=== PATIENT | male | born 1995 | race Caucasian/White ===

== ENCOUNTER 2020-10-13 18:32 | Inpatient (IN) | payer MEDICAID ==
[~2020-10-13] VITALS: Ht 167.6 cm; Wt 112.5 kg
[2020-10-13 19:53] LABS: BASOPHILS % (AUTO) 0.3 % (0.0-2.0); EOSINOPHILS % (AUTO) 0.4 % (1.0-6.0); HEMATOCRIT 40.5 % (41-53); HEMOGLOBIN 13.2 g/dL (13.5-17.5); LYMPHOCYTES # (AUTO) 2.9 K/uL (1.0-4.8); MEAN CORPUSCULAR HEMOGLOBIN 27.7 pg (26.0-34.0); MEAN CORPUSCULAR HGB CONC 32.7 G/dL (31.0-37.0); MEAN CORPUSCULAR VOLUME 85 fL (80-100); MONOCYTES # (AUTO) 1.1 K/uL (0.1-1.0); NEUTROPHILS # (AUTO) 9.6 K/uL (1.8-7.7); NEUTROPHILS % (AUTO) 70.3 % (40.0-70.0); PLATELET COUNT (AUTO) 329 K/uL (150-450); RED BLOOD CELL COUNT(AUTO) 4.78 MIL/uL (4.50-5.90); RED CELL DISTRIBUTION WIDTH 15.6 % (11.5-14.5)
[2020-10-13 19:58] LABS: ANION GAP 9 mmol/L (8-16); CALCIUM, TOTAL 8.4 mg/dL (8.8-10.5); CARBON DIOXIDE 26 mmol/L (22-29); CHLORIDE 101 mmol/L (98-107); CREATININE 1.05 mg/dL (0.60-1.30); GLOMERULAR FILTR. RATE CALC > 60 mL/min (>60); GLUCOSE,RANDOM 120 mg/dL (70-110); POTASSIUM 3.5 mmol/L (3.5-5.1); SODIUM SERUM 136 mmol/L (136-145); UREA NITROGEN, BLOOD 16 mg/dL (7-18)
[2020-10-13 20:01] LABS: APPEARANCE,URINE CLEAR (CLEAR); BILIRUBIN,URINE NEGATIVE (NEGATIVE); GLUCOSE, URINE (UA) NEGATIVE (NEGATIVE); KETONES,URINE NEGATIVE (NEGATIVE); LEUKOCYTE ESTERASE ,URINE NEGATIVE (NEGATIVE); NITRATE,URINE NEGATIVE (NEGATIVE); OCCULT BLOOD,URINE NEGATIVE (NEGATIVE); PH,URINE 6.5 (5.0-8.0); PROTEIN,URINE NEGATIVE (NEGATIVE); UROBILINOGEN,URINE 0.2 mg/dL (<=1.0)
[2020-10-13 20:05] LABS: ALANINE AMINOTRANSFERASE 61 U/L (12-78); ALBUMIN 3.5 g/dL (3.4-5.0); ALKALINE PHOSPHATASE 101 U/L (46-116); ASPARTATE AMINOTRANSFERASE 28 U/L (15-37); BILIRUBIN,TOTAL 0.6 mg/dL (0.1-1.0); TOTAL PROTEIN, SERUM 7.4 g/dL (6.4-8.2)
[2020-10-13 20:07] LABS: AMPHET/METH SCREEN,URINE NEGATIVE (NEGATIVE); BARBITURATE SCREEN, URINE NEGATIVE (NEGATIVE); BENZODIAZEPINES SCREEN,URINE NEGATIVE (NEGATIVE); CANNABINOID SCREEN,URINE NEGATIVE (NEGATIVE); COCAINE SCREEN,URINE NEGATIVE (NEGATIVE); METHADONE SCREEN, URINE NEGATIVE (NEGATIVE); OPIATE SCREEN,URINE NEGATIVE (NEGATIVE)
[2020-10-13 20:10] LABS: ACETAMINOPHEN < 2 mcg/mL (10-30); SALICYLATE < 2.8 mg/dL (2.8-20.0)
[2020-10-13 20:15] LABS: PHENCYCLIDINE SCREEN,URINE NEGATIVE (NEGATIVE)
[2020-10-13] MEDS ORDERED: QUEtiapine FUMARATE 100 MG TABLET PO PRN (20:30)
[2020-10-13] MEDS ORDERED: ZOLPIDEM TARTRATE 10 MG TABLET PO PRN (20:30)
[2020-10-13 20:39] LABS: COVID AG,FIA SOURCE NASOPHARYNGEAL
[2020-10-13 20:51] LABS: BACTERIA,URINE None Seen /HPF (None Seen); RBC,URINE None Seen /HPF (0-2); WBC,URINE None Seen /HPF (0-5)
[2020-10-13] MEDS ORDERED: OLAN2.5T29 PO (22:47)
[2020-10-13] MEDS ORDERED: BENZ0.5T44 PO (22:47)
[2020-10-13] MEDS ORDERED: DIPH25CA85 PO (22:47)
[2020-10-14 02:02] VITALS: BP 138/89
[2020-10-14 08:09] VITALS: BP 137/77
[2020-10-14 08:09] LABS: CHOL/HDL RATIO 2.7 (4.2-7.3)
[2020-10-14] MEDS ORDERED: ALBUTEROL SULFATE HFA 90 MCG/PUFF 8 GM INHALER IH PRN (09:00)
[2020-10-14] MEDS ORDERED: ONDANSETRON HCL 4 MG TABLET PO PRN (09:00)
[2020-10-14] MEDS ORDERED: PETROLATUM,WHITE 28 GM JELLY TP PRN (09:00)
[2020-10-14] MEDS ORDERED: CloNIDine HCL 0.1 MG TABLET PO PRN (09:00)
[2020-10-14] MEDS ORDERED: DOCUSATE SODIUM 100 MG CAPSULE PO PRN (09:00)
[2020-10-14] MEDS ORDERED: IBUPROFEN 400 MG TABLET PO PRN (09:00)
[2020-10-14] MEDS ORDERED: MAG HYDROX/AL HYDROX/SIMETH ES 30 ML SUSPENSION UDCUP PO PRN (09:00)
[2020-10-14] MEDS ORDERED: MAGNESIUM HYDROXIDE SUSPENSION 30 ML UDCUP PO PRN (09:00)
[2020-10-14] MEDS ORDERED: ACETAMINOPHEN 325 MG TABLET PO PRN (09:00)
[2020-10-14] MEDS ORDERED: LOPERAMIDE HCL 2 MG CAPSULE PO PRN (09:00)
[2020-10-14] MEDS: NICOTINE 14 MG/24 HOUR PATCH TD PRN (09:37)
[2020-10-14] MEDS: ARIPiprazole 15 MG TABLET PO SCH (13:34)
[2020-10-14] MEDS: DiphenhydrAMINE HCL 25 MG CAPSULE PO SCH (13:35)
[2020-10-14 16:22] VITALS: BP 137/61
[2020-10-14] MEDS: BENZTROPINE MESYLATE 1 MG TABLET PO SCH (16:37)
[2020-10-15 00:15] VITALS: BP 114/62
[2020-10-15] MEDS: ARIPiprazole 15 MG TABLET PO SCH (08:28)
[2020-10-15] MEDS: DiphenhydrAMINE HCL 25 MG CAPSULE PO SCH (08:28)
[2020-10-15] MEDS: BENZTROPINE MESYLATE 1 MG TABLET PO SCH ×2 (08:28→17:03)
[2020-10-15 09:00] VITALS: BP 130/70
[2020-10-15 16:08] VITALS: BP 138/79
[2020-10-16 00:15] VITALS: BP 147/83
[2020-10-16] MEDS: ARIPiprazole 15 MG TABLET PO SCH (08:20)
[2020-10-16] MEDS: BENZTROPINE MESYLATE 1 MG TABLET PO SCH ×2 (08:21→16:29)
[2020-10-16] MEDS: DiphenhydrAMINE HCL 25 MG CAPSULE PO SCH (08:21)
[2020-10-16 08:37] VITALS: BP 131/82
[2020-10-16] MEDS: GuaiFENesin/D-METHORPHAN [SUGAR-FREE] 200-20MG/10 ML SYRUP UDCUP PO PRN ×2 (09:26→15:37)
[2020-10-16] MEDS: NICOTINE 14 MG/24 HOUR PATCH TD PRN (12:40)
[2020-10-16 16:36] VITALS: BP 123/60
[2020-10-16] MEDS: LORazepam 2 MG TABLET PO PRN (19:54)
[2020-10-17 01:14] VITALS: BP 116/76
[2020-10-17 07:40] LABS: BASOPHILS % (AUTO) 0.4 % (0.0-2.0); EOSINOPHILS % (AUTO) 1.4 % (1.0-6.0); HEMATOCRIT 41.6 % (41-53); HEMOGLOBIN 13.8 g/dL (13.5-17.5); LYMPHOCYTES # (AUTO) 2.2 K/uL (1.0-4.8); LYMPHOCYTES % (AUTO) 24.6 % (22.0-44.0); MEAN CORPUSCULAR HEMOGLOBIN 28.1 pg (26.0-34.0); MEAN CORPUSCULAR HGB CONC 33.2 G/dL (31.0-37.0); MEAN CORPUSCULAR VOLUME 85 fL (80-100); MONOCYTES # (AUTO) 0.6 K/uL (0.1-1.0); MONOCYTES % (AUTO) 7.3 % (2.0-9.0); NEUTROPHILS # (AUTO) 5.8 K/uL (1.8-7.7); NEUTROPHILS % (AUTO) 66.3 % (40.0-70.0); PLATELET COUNT (AUTO) 297 K/uL (150-450); RED BLOOD CELL COUNT(AUTO) 4.91 MIL/uL (4.50-5.90); RED CELL DISTRIBUTION WIDTH 15.7 % (11.5-14.5)
[2020-10-17 08:05] VITALS: BP 140/76
[2020-10-17 08:07] LABS: FREE T4 (FREE THYROXINE) 1.02 ng/dL (0.76-1.46); THYROID STIMULATING HORMONE 1.28 uIU/mL (0.36-3.74)
[2020-10-17 08:12] LABS: HEMOGLOBIN A1C 5.8 % (3.8-5.6)
[2020-10-17] MEDS: BENZTROPINE MESYLATE 1 MG TABLET PO SCH ×2 (08:51→16:35)
[2020-10-17] MEDS: ARIPiprazole 15 MG TABLET PO SCH (08:51)
[2020-10-17] MEDS: DiphenhydrAMINE HCL 25 MG CAPSULE PO SCH (08:52)
[2020-10-17 16:19] VITALS: BP 109/71
[2020-10-17] MEDS: LORazepam 2 MG TABLET PO PRN (19:40)
[2020-10-17] MEDS: NICOTINE 14 MG/24 HOUR PATCH TD PRN (19:40)
[2020-10-18 03:37] VITALS: BP 134/89
[2020-10-18 07:35] LABS: COVID AG,FIA SOURCE NASOPHARYNGEAL
[2020-10-18] MEDS: ARIPiprazole 15 MG TABLET PO SCH (08:24)
[2020-10-18] MEDS: BENZTROPINE MESYLATE 1 MG TABLET PO SCH ×2 (08:24→16:38)
[2020-10-18] MEDS: DiphenhydrAMINE HCL 25 MG CAPSULE PO SCH (08:24)
[2020-10-18 08:33] VITALS: BP 128/78
[2020-10-18] MEDS: LORazepam 2 MG TABLET PO PRN ×2 (11:30→16:42)
[2020-10-18] MEDS: GABAPENTIN 300 MG CAPSULE PO SCH ×2 (13:25→16:38)
[2020-10-18 16:04] VITALS: BP 132/64
[2020-10-19 01:06] VITALS: BP 127/77
[2020-10-19] MEDS: GABAPENTIN 300 MG CAPSULE PO SCH ×3 (08:11→16:54)
[2020-10-19] MEDS: BENZTROPINE MESYLATE 1 MG TABLET PO SCH ×2 (08:11→16:54)
[2020-10-19] MEDS: ARIPiprazole 10 MG TABLET PO SCH (08:11)
[2020-10-19] MEDS: DiphenhydrAMINE HCL 25 MG CAPSULE PO SCH (08:11)
[2020-10-19 08:22] VITALS: BP 138/64
[2020-10-19] MEDS: LORazepam 2 MG TABLET PO PRN (08:40)
[2020-10-19] MEDS: NICOTINE 14 MG/24 HOUR PATCH TD PRN (09:22)
[2020-10-19 16:08] VITALS: BP 124/76
[2020-10-20 01:31] VITALS: BP 129/68
[2020-10-20 08:37] VITALS: BP 151/78
[2020-10-20] MEDS: DiphenhydrAMINE HCL 25 MG CAPSULE PO SCH (08:48)
[2020-10-20] MEDS: ARIPiprazole 10 MG TABLET PO SCH (08:48)
[2020-10-20] MEDS: GABAPENTIN 300 MG CAPSULE PO SCH ×2 (08:48→12:10)
[2020-10-20] MEDS: BENZTROPINE MESYLATE 1 MG TABLET PO SCH (08:48)
[2020-10-20 10:00] VITALS: BP 125/80
[2020-10-20] MEDS ORDERED: BENZ1TAB10 PO (13:43)
[2020-10-20] MEDS ORDERED: DIPH25CA85 PO (13:44)
[2020-10-20] MEDS ORDERED: ARIP10TA38 PO (13:44)
[2020-10-20] MEDS ORDERED: GABA-1181 PO (13:45)
[2020-10-20 16:11] VITALS: BP 131/71
[2020-10-21] MEDS ORDERED: MULTIVITAMINS, THERAPEUTIC TABLET PO SCH (09:00)
== END 2020-10-20 16:30 | disposition home or self-care (01) | DRG 750 ==
LOC: EMS 18:34 → B2S 20:26
PROVIDERS: ADMIT Psychiatry & Neurology Psychiatry; ATTEND Psychiatry & Neurology Psychiatry
DX: F25.9 Schizoaffective disorder, unspecified (principal); R45.851 Suicidal ideations; Z68.41 Body mass index [BMI] 40.0-44.9, adult; F41.1 Generalized anxiety disorder; F32.9 Major depressive disorder, single episode, unspecified; Z79.899 Other long term (current) drug therapy; Z88.8 Allergy status to other drugs, medicaments and biological substances; E66.9 Obesity, unspecified; R73.9 Hyperglycemia, unspecified; D64.9 Anemia, unspecified; D72.829 Elevated white blood cell count, unspecified; Z20.822 Contact with and (suspected) exposure to COVID-19
CPT/HCPCS: 71045; 80053; 80061; 81001; 83036; 84439; 84443; 85025; 99285; G0480; G0481; Q0162; 36415-L1; 36415-TC